=== PATIENT | female | born 1990 | race Caucasian/White ===

== ENCOUNTER 2018-03-12 14:34 | Inpatient (IN) | payer MEDICAID ==
[~2018-03-12] VITALS: Ht 149.9 cm; Wt 55.5 kg
[2018-03-12 16:27] LABS: APPEARANCE CLEAR (CLEAR); BILIRUBIN NEGATIVE (NEGATIVE); COLOR STRAW (YELLOW); GLUCOSE NEGATIVE (NEGATIVE); KETONE NEGATIVE (NEGATIVE); NITRITE NEGATIVE (NEGATIVE); PROTEIN NEGATIVE (NEGATIVE); UROBILINOGEN NORMAL (NORMAL)
[2018-03-12 16:34] LABS: HEMATOCRIT 29.6 % (36.0-48.0); HEMOGLOBIN 10.4 g/dL (12-16); MCHC 35.1 g/dL (31.0-37.0); PLATELET COUNT 211 10x3/uL (130-400); RBC 3.15 10x6/uL (4.00-5.40); RDW 12.8 % (11.5-14.5); WBC 13.9 10x3/uL (4.8-10.8)
[2018-03-12 17:06] LABS: LYMPHOCYTES 11 % (15-50); MONOCYTES 4 % (2-11); NEUTROPHILS 80 % (40-80); PLATELET ESTIMATE NORMAL
[2018-03-12 18:42] VITALS: BP 107/63; Ht 149.9 cm; Wt 55.5 kg
--- NOTE | 2018-03-13 08:58 | NUR ---
SEE [facility] FOR ALL NOTES AND DISCHARGE INSTRUCTIONS.
[2018-03-14 07:26] LABS: RAPID PLASMA REAGIN Non Reactive (Non Reactive)
== END 2018-03-13 09:05 | disposition home or self-care (01) | DRG 833 ==
LOC: D.LDO 14:34 → D.LD 17:37
PROVIDERS: ADMIT Obstetrics & Gynecology
DX: O26.93 Pregnancy related conditions, unspecified, third trimester (principal); M54.9 Dorsalgia, unspecified; M25.559 Pain in unspecified hip

== ENCOUNTER 2018-03-13 19:20 | Outpatient (CLI) | payer MEDICAID ==
[2018-03-12 18:42] VITALS: BMI 24.7
== END 2018-03-13 19:30 | disposition home or self-care (01) ==
LOC: D.LDO 19:20
DX: O26.899 Other specified pregnancy related conditions, unspecified trimester (principal); Z3A.00 Weeks of gestation of pregnancy not specified

== ENCOUNTER → 2018-03-28 13:00 | Outpatient (CLI) | payer MEDICAID ==
[2018-03-12 18:42] VITALS: BMI 24.7
[~2018-03-28 13:00] MED LIST: BASAGLAR K100 UNIT/1; DIFLUCAN150 MG; HUMALOG 30100 UNITS/; IBUPROFEN800 MG PO
== END | disposition home or self-care (01) ==
LOC: D.LDO 13:00
DX: O26.899 Other specified pregnancy related conditions, unspecified trimester (principal); Z3A.00 Weeks of gestation of pregnancy not specified

== ENCOUNTER 2018-04-06 10:15 | Outpatient (CLI) | payer MEDICAID ==
[2018-03-12 18:42] VITALS: BMI 24.7
[2018-04-06] MEDS ORDERED: BASAGLAR K100 UNIT/1 (21:44)
[2018-04-06] MEDS ORDERED: HUMALOG 30100 UNITS/ (21:45)
[2018-04-06] MEDS ORDERED: DIFLUCAN150 MG (21:45)
== END 2018-04-06 12:30 ==
LOC: D.LDO 10:15
DX: O24.913 Unspecified diabetes mellitus in pregnancy, third trimester (principal); Z3A.37 37 weeks gestation of pregnancy

== ENCOUNTER 2018-04-06 20:53 | Inpatient (IN) | payer MEDICAID ==
[~2018-04-06] VITALS: Ht 149.9 cm; Wt 57.6 kg
[2018-04-06 21:42] LABS: HEMATOCRIT 34.1 % (36.0-48.0); MCH 33.7 pg (26.0-34.0); MCHC 35.2 g/dL (31.0-37.0); MCV 95.8 fL (80.0-100.0); MEAN PLATELET VOLUME 10.4 fL (7.4-10.4); RBC 3.56 10x6/uL (4.00-5.40); RDW 13.3 % (11.5-14.5); WBC 11.7 10x3/uL (4.8-10.8)
[2018-04-06] MEDS ORDERED: BASAGLAR K100 UNIT/1 (21:44)
[2018-04-06] MEDS ORDERED: HUMALOG 30100 UNITS/ (21:45)
[2018-04-06] MEDS ORDERED: DIFLUCAN150 MG (21:45)
[2018-04-06 22:01] LABS: UDS - AMPHET NEGATIVE QUAL (NEGATIVE); UDS - BARB NEGATIVE QUAL (NEGATIVE); UDS - BENZO NEGATIVE QUAL (NEGATIVE); UDS - COCAINE NEGATIVE QUAL (NEGATIVE); UDS - OPIATE NEGATIVE QUAL (NEGATIVE); UDS - PCP NEGATIVE QUAL (NEGATIVE); UDS - THC NEGATIVE QUAL (NEGATIVE)
[2018-04-06 22:57] VITALS: BP 117/65; Ht 149.9 cm; Wt 57.6 kg
--- NOTE | 2018-04-07 04:50 | NUR ---
PATIENT RESTING QUIETLY WITH EYES CLOSED, BED LOCKED IN LOW POSITION, SIDE RAILS UPX2. CALL TORREZ AND TRAY TABLE IN REACH. SIGNIFICANT OTHER REMAINS AT BEDSIDE FOR SUPPORT. WILL CONTINUE TO MONITOR.
--- NOTE | 2018-04-07 05:59 | NUR ---
TORADOL 30MG SLOW IVP PER MD ORDERS FOR PAIN. SEE EMAR
[2018-04-07 07:10] LABS: BASOPHILS 0.2 % (0-2); EOSINOPHILS 0.8 % (0-7); HEMATOCRIT 28.6 % (36.0-48.0); HEMOGLOBIN 9.8 g/dL (12-16); IMMATURE GRANULOCYTES 0.5 % (0-5); LYMPHOCYTES 19.9 % (15-50); MCH 32.9 pg (26.0-34.0); MCHC 34.3 g/dL (31.0-37.0); MEAN PLATELET VOLUME 10.5 fL (7.4-10.4); MONOCYTES 7.6 % (2-11); PLATELET COUNT 228 10x3/uL (130-400); RBC 2.98 10x6/uL (4.00-5.40); RDW 13.3 % (11.5-14.5); WBC 11.6 10x3/uL (4.8-10.8)
--- NOTE | 2018-04-07 08:00 | NUR ---
AM ASSESSMENT COMPLETED, SEE FLOWSHEET. PT REPORTS PASSING A FEW DIME TO QUARTER SIZED CLOTS. PT DENIES HEAVY BLEEDING. PT DENIES ALL OTHER NEEDS AT THIS TIME.
--- NOTE | 2018-04-07 09:00 | NUR ---
[place] 04/07/18 S: Patient states this is her 3rd baby and she did breastfeed. Feels like she and baby are doing great with . Denies questions or concerns with ? Thanked CLC for helping with infant latch. Verbally agrees to ask for help as needed with . O: Patient lying in bed in laid back position. FOB on sofa. Observed latch and offer tips to help with correcting. Explained to hold tummy to tummy directly in front of the breast. Observed latching on the right breast at 8:20 in laid back position. had round checks, sucking in a rocking motion, mouth 140 degrees, and appears content with feeding. Observed infant sucking and removing milk from the breast. Asked if any pain or discomfort with ? takes time, practice, and patience in the beginning. Explained positions, how to verify infant latch is correct, benefits of skin to skin, infant feeding cues, and breastmilk composition. Encouraged patient to continue to put to the breast for every feeding this will help with establishing your milk supply. It is normal for to want to eat often. Asked if any questions or concerns? Praised for . Asked if she gets WIC and made WIC appointment for patient in [facility]. A: Patient has previous experience with and appears confident with latching infant. P: Continue to promote during hospital visit. Kathy Ward, JOELLE
[2018-04-07 09:42] VITALS: BP 108/59
--- NOTE | 2018-04-07 12:05 | NUR ---
PREOP COMPLETED, INCLUDING MEDS, VITAL SIGNS, SCD'S AND CHECKLIST. SPOKE WITH MICHELLE IN SURGERY, AND HE STATES IF MD WANTS A CATHETER FOR PPBTL, THEY WILL TAKE CARE OF IT UP IN SURGERY.
--- NOTE | 2018-04-07 15:45 | NUR ---
PT CALLS OUT RESEARCH SOIL SCIENTIST LIGHT AND REQUESTS TO GET UP TO THE BATHROOM. PT REQUESTS TO HAVE IV TAKEN OUT. IV DC'D WITH CATH INTACT. PT YISSEL WELL. PT THEN UP TO BR, VOIDS PER SELF WITHOUT DIFFICULTY. SIG OTHER IN ROOM HOLDING AT THIS TIME. PT DENIES ALL OTHER NEEDS. SR UP X2, CALL LIGHT AND PHONE WITHIN REACH.
--- NOTE | 2018-04-07 18:13 | NUR ---
PT CALLS OUT WAIVER ANALYST LIGHT AND REQUESTS PAIN MEDICATION, SEE EMAR FOR ALL MEDS ADM BY THIS RN. MOTRIN 800 ONE PO, AND TYLENOL [address] GAY REQUESTED BY PT. PT IS SITTING IN THE BED, HOLING INFANT. SIG OTHER AT BEDSIDE. PT DENIES ALL OTHER NEEDS. SR UP X2, CALL LIGHT AND PHONE WITHIN REACH.
--- NOTE | 2018-04-07 19:40 | NUR ---
PT AMBULATING IN HALLWAY AT THIS TIME. NO COMPLAINTS NOTED AT THIS TIME. Mc MENDEZ, RN
[2018-04-07 20:33] VITALS: BP 119/57
--- NOTE | 2018-04-07 20:33 | NUR ---
PT REC'D IN BED AT THIS TIME. COMPLAINS OR PERINEAL PAIN/PRESSURE. PT PROVIDED WITH TUCKD AND DERMOPLAST AT THIS TIME. VITAL SIGNS STABLE. LUNGS CLEAR. BS+ FUNDUS FIRM, MIDLINE, SMALL AMOUNT OF LOCHIA NOTED. FUNDUS AT U/2. SIDERAILS UP FOR SAFETY. CALL LIGHT IN EASY REACH.Mc MENDEZ RN
--- NOTE | 2018-04-07 21:37 | NUR ---
PT RECEIVED ORAL DOSE OF MILK OF MAGNESIA AND PROVIDED WITH VIS FOR MMR FOR PATIENT REVIEW. Mc MENDEZ RN
--- NOTE | 2018-04-07 22:50 | NUR ---
PT ASLEEP. NOT AWAKENED AT THIS TIME. NO DISTRESS NOTED. Mc MENDEZ RN
--- NOTE | 2018-04-08 | NUR ---
PT REC'D ASLEEP AT THIS TIME. RESTING COMFORTABLY. NOT AWAKENED AT THIS TIME. NO DISTRESS NOTED. Mc MENDEZ RN
--- NOTE | 2018-04-08 01:15 | NUR ---
PT GIVEN ORAL DOSE OF TYLENOL AT THIS TIME FOR PAIN LEVEL OF 7. PT EASILY AWAKENED AT THIS TIME. NO DISTRESS NOTED. Mc MENDEZ RN
--- NOTE | 2018-04-08 02:39 | NUR ---
PT MEDICATED WITH 800 MG OF MOTRIN AT THIS TIME FOR PAIN LEVEL OF 4. WILL CONTINUE TO MONITOR THIS SHIFT. Mc MENDEZ RN
--- NOTE | 2018-04-08 03:58 | NUR ---
PT REC'D IN BED AT [place]. RESTING COMFORTABLY THIS AM. NOT AWAKEDNED AT THIS TIME. NO ACUTE DISTRESS NOTED. Mc MENDEZ RN
--- NOTE | 2018-04-08 04:30 | NUR ---
PT RESTING WELL AT THIS TIME IN ROOM. NOT AWAKENED. SIDERAILS UP FOR SAFETY. CALL LIGHT IN PT REACH. Mc MENDEZ RN
--- NOTE | 2018-04-08 06:38 | NUR ---
PT REMAINS ASLEEP THIS AM WITH AT SIDE IN OPEN CRIB. NO DISTRESS NOTED AT THIS TIME. SIDERAIL UP FOR SAFETYL CALL LIGHTIN PT REACH. Mc MENDEZ RN
[2018-04-08 07:49] VITALS: BP 102/55
--- NOTE | 2018-04-08 07:49 | NUR ---
RECEIVED PT SITTING UP IN BED. CARING FOR INFANT WITH MUCH WARMTH SHOWN. VSS. HRRR WITHOUT AUDIBLE MURMUR. BBS CLEAR. BS X 4. ABDOMEN SOFT/NON-DISTENDED. FUNDUS FIRM AT U/2. RUBRA LOCHIA SMALL AMT. PERINEUM WITHOUT EDEMA. NEG HOMANS' SIGN. PPP. NO EDEMA NOTED TO BLE. PT C/O PAIN TO PERINEUM OF "6" ON 0-10 PAIN SCALE. PT GIVEN SCHEDULED TYLENOL ORDERED. PT PROVIDED WITH ICE WATER. DENIES OTHER C/O OR NEEDS. SR UPX 2. CALL LIGHT IN REACH.
[2018-04-08] MEDS ORDERED: IBUPROFEN800 MG PO (08:36)
--- NOTE | 2018-04-08 09:14 | NUR ---
PT SITTING UP IN BED. INFANT. DENIES C/O OR NEEDS. STATES HAD TDAP AND FLU VACCINE AT [facility]. STATES DESIRE FOR MMR VACCINE PRIOR TO DISCHARGE. INFO SHEET ALREADY PROVIDED TO PT.
--- NOTE | 2018-04-08 10:15 | NUR ---
DR MELVIN TO PT ROOM.
--- NOTE | 2018-04-08 11:15 | NUR ---
PT CALLS OUT CORN SHELLER LIGHT REQUESTING IBUPROFEN. THIS RN TO ROOM. PT RATING PAIN 6/10, PRESSURE AND PAIN IN PERINEUM. PT ADMIN IBUPROFEN ORDERED, SEE EMAR FOR DOC. PT DENIES FURTHER NEEDS AT THIS TIME. SRUx2, CL IN REACH. SIG OTHER IN ROOM. WILL CONT TO MONITOR.
--- NOTE | 2018-04-08 11:45 | NUR ---
MMR VACCINE 0.5 ML GIVEN SQ TO RIGHT OUTER ARM. BANDAID TO SITE. PT YISSEL WELL.
--- NOTE | 2018-04-08 11:55 | NUR ---
DISCHARGE INSTRUCTIONS GIVEN TO PT. PT VERBALIZES UNDERSTANDING OF ALL INSTRUCTIONS. COPIES GIVEN TO PT. PT STATES DR MELVIN SENT RX FOR MOTRIN TO PT PHARMACY. PT AWAITING INFANT'S DISCHARGE. DENIES C/O OR NEEDS.
--- NOTE | 2018-04-08 12:10 | NUR ---
NIPPLE SHIELD PROVIDED TO PT AT DR MELVIN'S REQUEST.
--- NOTE | 2018-04-08 13:05 | NUR ---
PT READY FOR DISCHARGE. DISCHARGED IN STABLE CONDITION WITH VIA WHEELCHAIR TO PRIVATE VEHICLE.
== END 2018-04-08 13:05 | disposition home or self-care (01) | DRG 807 ==
LOC: D.LDO 20:53 → D.LD 21:10
PROVIDERS: ADMIT Obstetrics & Gynecology
PROC: 10E0XZZ Delivery of Products of Conception, External Approach (ICD-10-PCS; principal; 2018-04-06)
DX: O24.429 Gestational diabetes mellitus in childbirth, unspecified control (principal); Z37.0 Single live birth; O99.344 Other mental disorders complicating childbirth; Z3A.37 37 weeks gestation of pregnancy; O99.334 Smoking (tobacco) complicating childbirth

== ENCOUNTER 2018-09-18 13:10 | Emergency (ER) | payer MEDICAID ==
[~2018-09-18] VITALS: Ht 149.9 cm; Wt 52.3 kg
[2018-09-18 13:15] VITALS: BP 108/68; Ht 149.9 cm; Wt 52.3 kg
== END 2018-09-18 16:40 | disposition left against medical advice (07) ==
LOC: D.ER 13:10
DX: T14.8XXA Other injury of unspecified body region, initial encounter (principal); V86.55XA Driver of 3- or 4- wheeled all-terrain vehicle (ATV) injured in nontraffic accident, initial encounter; Y93.89 Activity, other specified; Y92.89 Other specified places as the place of occurrence of the external cause

== ENCOUNTER 2019-04-27 12:41 | Emergency (ER) | payer MEDICAID ==
[~2019-04-27] VITALS: Ht 149.9 cm; Wt 48.2 kg
[2019-04-27 12:45] VITALS: Ht 149.9 cm; Wt 48.2 kg
[2019-04-27 13:04] LABS: BILIRUBIN NEGATIVE (NEGATIVE); GLUCOSE NEGATIVE (NEGATIVE); KETONE NEGATIVE (NEGATIVE); NITRITE NEGATIVE (NEGATIVE); UROBILINOGEN NORMAL (NORMAL)
[2019-04-27 13:09] LABS: BACTERIA FEW /hpf (NEGATIVE); EPITHELIAL CELLS 0-5 /hpf (0-5); RED CELLS - URINE 0-5 /hpf (0-5); WHITE CELLS - URINE 0-5 /hpf (NEGATIVE)
[2019-04-27 13:19] LABS: HCG SERUM NEGATIVE (NEGATIVE)
[2019-04-27 13:21] LABS: BASOPHILS 0.3 % (0-2); EOSINOPHILS 1.3 % (0-7); HEMATOCRIT 37.7 % (36.0-48.0); HEMOGLOBIN 12.8 g/dL (12-16); IMMATURE GRANULOCYTES 0.3 % (0-5); LYMPHOCYTES 12.4 % (15-50); MCH 31.8 pg (26.0-34.0); MCV 93.8 fL (80.0-100.0); MEAN PLATELET VOLUME 10.2 fL (7.4-10.4); MONOCYTES 6.3 % (2-11); NEUTROPHILS 79.4 % (40-80); PLATELET COUNT 264 10x3/uL (130-400); RBC 4.02 10x6/uL (4.00-5.40); RDW 12.6 % (11.5-14.5)
[2019-04-27 13:43] LABS: CALC OSMOLALITY 275 mosm/kg (275-300); CALCIUM 9.1 mg/dL (8.5-10.1); CARBON DIOXIDE 29.9 mmol/L (21.0-32.0); CHLORIDE - SERUM 101 mmol/L (98-107); CREATININE - SERUM 0.8 mg/dL (0.6-1.3); GLUCOSE 118 mg/dL (74-106); POTASSIUM - SERUM 3.5 mmol/L (3.5-5.1); SODIUM 138 mmol/L (136-145); UREA NITROGEN 9 mg/dL (7-18); eGFR NON AFRICAN AMERICAN > 90 mL/min (90-120)
[2019-04-27 13:49] LABS: ALBUMIN 3.7 g/dL (3.4-5.0); ALKALINE PHOSPHATASE 84 U/L (30-120); ALT (SGPT) 16 U/L (10-68); AMYLASE - SERUM 57 U/L (25-115); BILIRUBIN - TOTAL 0.25 mg/dL (0.2-1.3); LIPASE 78 U/L (73-393); PROTEIN - SERUM 8.2 g/dL (6.4-8.2)
[2019-04-27] MEDS ORDERED: HYDROCODON-ACE1 EAC7 PO (18:33)
[2019-04-27 18:39] VITALS: BP 112/68
[2019-05-01 19:08] LABS: CHLAMYDIA TRACHOMATIS, NAA Positive (Negative)
== END 2019-04-27 18:40 | disposition home or self-care (01) ==
LOC: D.ER 12:41
PROVIDERS: Emergency Medicine
DX: N83.202 Unspecified ovarian cyst, left side (principal); K59.00 Constipation, unspecified; N73.0 Acute parametritis and pelvic cellulitis; E11.9 Type 2 diabetes mellitus without complications

== ENCOUNTER 2020-05-06 12:40 | Emergency (ER) | payer SELFPAY ==
[~2020-05-06] VITALS: Ht 149.9 cm; Wt 50.0 kg
[~2020-05-06 12:40] MED LIST changes: +HYDROCODON-ACE1 EAC7 PO
[2020-05-06 12:54] VITALS: Ht 149.9 cm; Wt 50.0 kg
[2020-05-06] MEDS ORDERED: VOLTAREN75 MG PO (14:33)
[2020-05-06] MEDS ORDERED: BACLOFEN20 M1 PO (14:33)
[2020-05-06] MEDS ORDERED: MEDROL DOSE PACK4 MG PO (14:37)
[2020-05-06 14:44] VITALS: BP 102/60
== END 2020-05-06 14:45 | disposition home or self-care (01) ==
LOC: D.ER 12:40
DX: M54.2 Cervicalgia (principal); R09.1 Pleurisy

== ENCOUNTER → 2020-06-17 | Emergency (ER) | payer SELFPAY ==
[~2020-06-17] VITALS: Ht 149.9 cm; Wt 50.5 kg
[~2020-06-17] MED LIST changes: +BACLOFEN20 M1 PO; +CLEOCIN HCL300 MG PO; +DICLOFENAC SODI50 MG PO; +MEDROL DOSE PACK4 MG PO; +ORAL ANALGESIC9 GM TOPICAL; +VOLTAREN75 MG PO
[2020-06-17 16:41] VITALS: BP 111/64; Ht 149.9 cm; Wt 50.5 kg
== END | disposition home or self-care (01) ==
LOC: D.ER 16:36
DX: K08.89 Other specified disorders of teeth and supporting structures (principal)

== ENCOUNTER 2020-08-10 22:57 | Emergency (ER) | payer MEDICAID ==
[~2020-08-10] VITALS: Ht 149.9 cm; Wt 52.3 kg
[2020-08-10 23:12] VITALS: BP 110/77; Ht 149.9 cm; Wt 52.3 kg
[2020-08-11] MEDS ORDERED: NAPROSYN500 MG PO (00:18)
[2020-08-11] MEDS ORDERED: ULTRAM50 MG PO (00:18)
== END 2020-08-11 00:49 | disposition home or self-care (01) ==
LOC: D.ER 22:57
DX: S39.012A Strain of muscle, fascia and tendon of lower back, initial encounter (principal); V89.2XXA Person injured in unspecified motor-vehicle accident, traffic, initial encounter; Y93.9 Activity, unspecified; Y92.9 Unspecified place or not applicable